=== PATIENT | female | born 1985 | race Hispanic/Latino ===

== ENCOUNTER → 2023-10-09 | Emergency (ER) | payer SELFPAY ==
[~2023-10-09] VITALS: Ht 170.2 cm; Wt 90.7 kg
[~2023-10-09] MED LIST: ALBUHFA IH; METH4TAB3 PO
[2023-10-09 20:47] LABS: RAPID GROUP A STREP negative (NEGATIVE)
[2023-10-09 20:49] LABS: SARS-CoV-2, RNA, NAAT NEGATIVE SARS CoV-2 (NEGATIVE)
[2023-10-09 20:57] LABS: INFLUENZA TYPE A Negative For Type A (NEGATIVE); INFLUENZA TYPE B Negative For Type B (NEGATIVE)
[2023-10-09] MEDS: dexaMETHasone SOD PHOSPHATE 4 MG/ML 1ML VIAL IM ONE (21:19)
[2023-10-09 21:26] VITALS: PULSE 94; RESP 19
[2023-10-09] MEDS: ALBUTEROL 0.083% 2.5 MG/3 ML INH IH ONE (21:26)
[2023-10-09 21:56] VITALS: BP 136/74; PULSE 86; RESP 18; O2SAT 98
== END ==
LOC: EDH 20:25
DX: J45.901 Unspecified asthma with (acute) exacerbation (principal); Z20.822 Contact with and (suspected) exposure to COVID-19; Z98.890 Other specified postprocedural states; Z88.0 Allergy status to penicillin; Z88.8 Allergy status to other drugs, medicaments and biological substances
CPT/HCPCS: 99284; 71045; 87635; 87880; 87804 ×2; 94640; J1100

== ENCOUNTER 2023-10-13 10:22 | Emergency (ER) | payer SELFPAY ==
[~2023-10-13] VITALS: Ht 162.6 cm; Wt 90.7 kg
[2023-10-13 11:44] VITALS: PULSE 76; RESP 21
[2023-10-13] MEDS: IpraTROPium/alBUTERol SULFATE 3 ML SOLUTION IH ONE (11:44)
[2023-10-13] MEDS: hydrOXYzine 10 MG TABLET PO SCH (11:53)
[2023-10-13] MEDS ORDERED: AZIT250T9 PO (12:42)
[2023-10-13 12:55] VITALS: BP 124/82; PULSE 72; RESP 18; O2SAT 100
== END 2023-10-13 13:00 | disposition home or self-care (01) ==
LOC: EDH 10:22
DX: F41.9 Anxiety disorder, unspecified (principal); J45.909 Unspecified asthma, uncomplicated; F32.A Depression, unspecified; Z79.899 Other long term (current) drug therapy; Z88.0 Allergy status to penicillin; Z88.8 Allergy status to other drugs, medicaments and biological substances; Z98.890 Other specified postprocedural states
CPT/HCPCS: 71045; 94640